=== PATIENT | female | born 1945 | race Caucasian/White ===

== ENCOUNTER 2019-08-17 22:28 | Emergency (ER) | payer MEDICARE ==
[~2019-08-17] VITALS: Ht 162.6 cm; Wt 83.9 kg
[~2019-08-17 22:28] MED LIST: ASPI81TA50 PO; NEBI5TAB2 PO; OLME40TA12 PO
[2019-08-17 23:57] LABS: BASO # 0.1 x10^3/uL (0.0-0.2); BASO % 1 % (0-3); EOS # 0.2 x10^3/uL (0.0-0.7); EOS % 3 % (0-3); HEMATOCRIT 38.1 % (36.0-47.0); HEMOGLOBIN 12.4 g/dL (12.0-15.5); LYMPH # 1.9 x10^3/uL (1.0-4.8); LYMPH % 23 % (24-48); MEAN CORPUSCULAR HEMOGLOBIN 29 pg (25-35); MEAN CORPUSCULAR HGB CONC 33 g/dL (31-37); MEAN CORPUSCULAR VOLUME 88 fL (79-100); MONO # 0.9 x10^3/uL (0.0-1.1); MONO % 11 % (0-9); NEUT # 5.2 x10^3uL (1.8-7.7); NEUT % 63 % (31-73); PLATELET COUNT 316 x10^3/uL (140-400); RED BLOOD COUNT 4.31 x10^6/uL (3.50-5.40); RED CELL DISTRIBUTION WIDTH 13.6 % (11.5-14.5); WHITE BLOOD COUNT 8.2 x10^3/uL (4.0-11.0)
[2019-08-18 00:08] LABS: CALCIUM 9.1 mg/dL (8.5-10.1); CREATININE 0.8 mg/dL (0.6-1.0); GFR 70.1; POTASSIUM 3.8 mmol/L (3.5-5.1)
--- NOTE | 2019-08-18 00:11 | PHYS DOC ---
Past History Past Medical History: Hypertension Additional Past Surgical Histo: cataract surgery Smoking: Non-smoker Alcohol Use: None Drug Use: None Adult General Chief Complaint Chief Complaint: MECHANICAL FALL HPI HPI 74-year-old female presents with report of right ankle pain and swelling as well as right groin pain after missing a step at her daughter's house just prior to arrival. Patient denies head trauma or neck pain. Reports unable to bear weight on right foot. Denies numbness or tingling. Patient does report use of aspirin daily. Denies other blood thinners. Denies chest pain. Review of Systems Review of Systems Constitutional: Denies fever or chills Eyes: Denies redness or eye pain HENT: Denies nasal congestion or sore throat Respiratory: Denies cough or shortness of breath Cardiovascular: Denies chest pain or palpitations GI: Denies abdominal pain, nausea, or vomiting : Denies dysuria or hematuria Musculoskeletal: Reports right ankle and hip pain Integument: Denies rash or skin lesions Neurologic: Denies headache, focal weakness or sensory changes Complete systems were reviewed and found to be within normal limits, except as documented in this note. Current Medications Current Medications Current Medications Medications (Trade) Dose Ordered Sig/Richard Start Time Stop Time Status Last Admin Dose Admin Fentanyl Citrate (Fentanyl 2ml Vial) 100 mcg STK-MED ONCE 08/17/19 23:56 08/17/19 23:56 DC Allergies Allergies Allergies Coded Allergies Type Severity Reaction Last Updated Verified ramipril Allergy Severe 08/17/19 Yes phenazopyridine Allergy Intermediate Nausea and Vomiting 08/18/19 Yes shrimp Allergy Intermediate facial numbness 07/29/15 Yes Physical Exam Physical Exam Constitutional: Well developed, well nourished, no acute distress, non-toxic appearance HENT: Normocephalic, atraumatic, oropharynx moist Eyes: PERRL, EOMI, conjunctiva normal, no discharge Neck: Normal range of motion, no midline tenderness, supple Cardiovascular: Heart rate normal, regular rhythm Lungs & Thorax: Bilateral breath sounds clear to auscultation, no wheezing Abdomen: Soft, no tenderness; pelvis stable and nontender Skin: Warm, dry, no erythema, no rash, swelling and ecchymosis noted to right ankle Back: No midline tenderness, no CVA tenderness Extremities: Right medial and lateral malleolus pain on palpation, right DP and PT +2, sensation intact, pain on palpation of femoral head, no limb shortening Neurologic: Alert and oriented X 3, normal motor function, normal sensory function, no focal deficits noted Psychologic: Affect normal, judgment normal Current Patient Data Vital Signs Vital Signs Date Time Temp Pulse Resp B/P (MAP) Pulse Ox O2 Delivery O2 Flow Rate FiO2 08/18/19 00:00 71 20 193/73 (113) 93 Room Air Lab Results Laboratory Tests Test 08/17/19 23:40 White Blood Count 8.2 x10^3/uL (4.0-11.0) Red Blood Count 4.31 x10^6/uL (3.50-5.40) Hemoglobin 12.4 g/dL (12.0-15.5) Hematocrit 38.1 % (36.0-47.0) Mean Corpuscular Volume 88 fL (79-100) Mean Corpuscular Hemoglobin 29 pg (25-35) Mean Corpuscular Hemoglobin Concent 33 g/dL (31-37) Red Cell Distribution Width 13.6 % (11.5-14.5) Platelet Count 316 x10^3/uL (140-400) Neutrophils (%) (Auto) 63 % (31-73) Lymphocytes (%) (Auto) 23 % (24-48) L Monocytes (%) (Auto) 11 % (0-9) H Eosinophils (%) (Auto) 3 % (0-3) Basophils (%) (Auto) 1 % (0-3) Neutrophils # (Auto) 5.2 x10^3uL (1.8-7.7) Lymphocytes # (Auto) 1.9 x10^3/uL (1.0-4.8) Monocytes # (Auto) 0.9 x10^3/uL (0.0-1.1) Eosinophils # (Auto) 0.2 x10^3/uL (0.0-0.7) Basophils # (Auto) 0.1 x10^3/uL (0.0-0.2) EKG EKG @ 2316 NSR at 77bpm, NO ST elevation, nonspecific t wave inversion aVL, Q wave in V2, QRS 110ms, QT/QTc 370/420ms Radiology/Procedures Radiology/Procedures PROCEDURE: ANKLE RIGHT 3V ANKLE RIGHT 3V History: Fall. Pain. Technique: 3 views right ankle. Comparison: None. Findings: Mildly displaced right distal fibular fracture with posterior displacement of the distal fracture fragment. Nondisplaced posterior malleolar fracture. Mildly displaced medial malleolus fracture with inferior displacement of the distal fracture fragment. Widening of the ankle mortise. Ankle soft tissue swelling. Ankle joint effusion. Plantar calcaneal spur. Dorsal calcaneal enthesophyte. Impression: 1. Acute trimalleolar fracture with widening of ankle mortise. Electronically signed by: Sergio Camacho DO (08/18/2019 12:52 AM) [id number] PROCEDURE: HIP RIGHT 2V WITH PELVIS HIP RIGHT 2V WITH PELVIS History: Pain. Fall. Technique: AP view the pelvis and 2 additional views of the right hip. Comparison: None. Findings: Normal alignment. No fracture. Lower lumbar spondylosis. Impression: 1. No acute osseous abnormality. 2. Lower lumbar spondylosis. Electronically signed by: Sergio Camacho DO (08/18/2019 2:05 AM) [id number] CXR AP (preliminary interpretation by ED physician): No acute process Course & Med Decision Making Course & Med Decision Making Pertinent Labs and Imaging studies reviewed. (See chart for details) Patient presents with mechanical trip and fall with pain to right hip and right ankle. Patient neurologically intact. Reports use of aspirin daily. No signs of head injury on physical exam. No midline cervical spine tenderness. X-ray of right hip without acute fracture or dislocation. X-ray of right ankle with signs of trimalleolar fracture. Limb neurovascularly intact. Splint applied. Preoperative labs, EKG, and chest x-ray obtained and posted to chart. Discussed case with Dr. Arreola (orthopedics at [facility]) who is in agreement with consultation and need for admission with plan for OR. Patient requiring transfer for admission to [facility] for further evaluation and treatment. Discussed with Dr. Luciano (hospitalist) who is in agreement with admission. Discussed findings and plan with patient and family, who acknowledge understanding and agreement. Dragon Disclaimer Dragon Disclaimer This electronic medical record was generated, in whole or in part, using a voice recognition dictation system. Splinting Splinting : Location: Right ankle Hand-Made Type: orthoglass Splint: stirrup Pre-Proc Neuro Vasc Exam: normal Post-Proc Neuro Vasc Exam: normal, unchanged from pre-exam Departure Departure: Impression: Primary Impression: Trimalleolar fracture of right ankle Disposition: 05 TRANSFER OTHER ([facility]) Admitting Physician: Eleni Luciano Condition: STABLE Referrals: JERICA OGDEN MD (PCP) Problem Qualifiers Primary Impression: Trimalleolar fracture of right ankle Encounter type: initial encounter Fracture type: closed Qualified Codes: S82.851A - Displaced trimalleolar fracture of right lower leg, initial encounter for closed fracture GRISELDA WICK DO Aug 18, 2019 00:11
[2019-08-18 00:34] LABS: ALBUMIN 3.7 g/dL (3.4-5.0); MAGNESIUM 1.9 mg/dL (1.8-2.4); TOTAL BILIRUBIN 0.1 mg/dL (0.2-1.0); TOTAL PROTEIN 7.4 g/dL (6.4-8.2)
[2019-08-18 00:37] LABS: PLT ESTIMATE ADEQUATE (ADEQUATE)
[2019-08-18 00:38] LABS: TOXIC GRANULATION SLIGHT; TOXIC VACUOLATION SLIGHT
--- NOTE | 2019-08-18 00:55 | RAD ---
ANKLE RIGHT 3V History: Fall. Pain. Technique: 3 views right ankle. Comparison: None. Findings: Mildly displaced right distal fibular fracture with posterior displacement of the distal fracture fragment. Nondisplaced posterior malleolar fracture. Mildly displaced medial malleolus fracture with inferior displacement of the distal fracture fragment. Widening of the ankle mortise. Ankle soft tissue swelling. Ankle joint effusion. Plantar calcaneal spur. Dorsal calcaneal enthesophyte. Impression: 1. Acute trimalleolar fracture with widening of ankle mortise. Electronically signed by: Sergio Camacho DO (08/18/2019 12:52 AM) [id number]
[2019-08-18] MEDS ORDERED: SERT25TA PO (01:01)
[2019-08-18] MEDS ORDERED: MELA5TAB20 PO (01:01)
[2019-08-18] MEDS ORDERED: MOME13HF4 IH (01:01)
[2019-08-18] MEDS ORDERED: KETO5DRO OS (01:01)
[2019-08-18] MEDS ORDERED: ALBU2.5V8 INH (01:01)
[2019-08-18] MEDS ORDERED: zicam TOP (01:01)
[2019-08-18] MEDS ORDERED: LOSA100T14 PO (01:01)
[2019-08-18] MEDS ORDERED: MOXI3DRO18 OP (01:01)
[2019-08-18] MEDS ORDERED: PRED5DRO20 OS (01:01)
[2019-08-18] MEDS ORDERED: CARV6.25 PO (01:01)
--- NOTE | 2019-08-18 02:08 | RAD ---
HIP RIGHT 2V WITH PELVIS History: Pain. Fall. Technique: AP view the pelvis and 2 additional views of the right hip. Comparison: None. Findings: Normal alignment. No fracture. Lower lumbar spondylosis. Impression: 1. No acute osseous abnormality. 2. Lower lumbar spondylosis. Electronically signed by: Sergio Camacho DO (08/18/2019 2:05 AM) [id number]
[2019-08-18] MEDS ORDERED: LABETALOL 100 MG/20 ML VIAL. IV ONE (02:37)
--- NOTE | 2019-08-18 02:42 | RAD ---
CHEST AP ONLY History: Preoperative pain. Comparison: None. Findings: Patchy central and bibasilar opacities. No pleural effusion. No pneumothorax. Normal heart size. Impression: 1. Patchy central and bibasilar opacities, likely atelectasis. Electronically signed by: Sergio Camacho DO (08/18/2019 2:39 AM) [id number]
[2019-08-18 02:45] VITALS: BP 205/91
[2019-08-18] MEDS ORDERED: LABETALOL 20 MG/4 ML DISP.SYRIN. IVP ONE (03:00)
[2019-08-18 03:03] LABS: BACTERIA,URINE FEW /HPF (0-FEW); BILIRUBIN,URINE NEG (NEG); CLARITY,URINE HAZY; COLOR,URINE YELLOW; GLUCOSE,URINE NEG (NEG); NITRITE,URINE NEG (NEG); RBC,URINE OCC /HPF (0-2); SQUAMOUS EPITHELIAL CELL,UR OCC /LPF; UROBILINOGEN,URINE 0.2 mg/dL (0.2 mg/dL); WBC,URINE OCC /HPF (0-4)
--- NOTE | 2019-08-18 12:35 | EKG ---
[address] [address] Test Date: 2019-08-17 Test Time: 23:16:32 Pat Name: NIECY MARTIN Department: Room: Gender: F Recreation Counselor: : 1945 Requested By: GRISELDA WICK Order Number: [id number] Reading MD: Measurements Intervals [place] Rate: 77 P: -21 AR: 144 QRS: -14 QRSD: 110 T: 72 QT: 370 QTc: 420 Interpretive Statements SINUS RHYTHM LEFTWARD AXIS QRS(T) CONTOUR ABNORMALITY CONSISTENT WITH ANTEROSEPTAL INFARCT AGE UNDETERMINED T ABNORMALITY IN HIGH LATERAL LEADS ABNORMAL ECG RI6.01 No previous ECG available for comparison
== END 2019-08-18 02:47 | disposition short-term general hospital (02) ==
LOC: ER 22:28
DX: S82.851A Displaced trimalleolar fracture of right lower leg, initial encounter for closed fracture (principal); R10.31 Right lower quadrant pain; Z88.8 Allergy status to other drugs, medicaments and biological substances; Z91.013 Allergy to seafood; W10.8XXA Fall (on) (from) other stairs and steps, initial encounter; Y93.89 Activity, other specified; Y92.89 Other specified places as the place of occurrence of the external cause; Y99.9 Unspecified external cause status
CPT/HCPCS: 29515; 36415; 71045; 73502; 73610; 80053; 81001; 82553; 83735; 84484; 85025; 85610; 85730; 87086; 93005; 96374; 96375; 99285; J3010; J3490

== ENCOUNTER → 2019-09-12 | Outpatient (CLI) | payer MEDICARE ==
[2019-08-18 02:45] VITALS: BP 205/91
[~2019-09-12] MED LIST changes: +ALBU2.5V8 INH; +CARV6.25 PO; +KETO5DRO OS; +LOSA100T14 PO; +MELA5TAB20 PO; +MOME13HF4 IH; +MOXI3DRO18 OP; +PRED5DRO20 OS; +SERT25TA PO; +zicam TOP
--- NOTE | 2019-09-12 11:04 | RAD ---
Right ankle 3 views: Reason for examination: Closed fracture with repair 3 weeks ago. Nonweightbearing. Plate and screws are present at the distal fibula with good alignment of the fracture site. Some minimal periosteal reaction is seen at the fracture. 2 threaded screws are also present at the medial malleolus with improved alignment. No new sites of fracture or dislocation are seen. Plantar spur is present on the calcaneus. Joint spaces are maintained. IMPRESSION: Postoperative changes at the distal tibia and fibula with good alignment. Electronically signed by: Bre Mary MD (09/12/2019 11:02 AM) [id number]
== END ==
LOC: DXRAD 10:40
PROVIDERS: ATTEND Physician Assistant
DX: S82.891D Other fracture of right lower leg, subsequent encounter for closed fracture with routine healing (principal); X58.XXXD Exposure to other specified factors, subsequent encounter
CPT/HCPCS: 73610

== ENCOUNTER → 2019-10-14 | Outpatient (CLI) | payer MEDICARE ==
--- NOTE | 2019-10-14 12:26 | RAD ---
PROCEDURE: ANKLE RIGHT 3V STUDY DATE: 10/14/2019 CLINICAL INDICATION / HISTORY: Status post right ankle surgery. TECHNIQUE: Right ankle 3 views. COMPARISON: Right ankle views of 08/17/2019 and 09/12/2019 FINDINGS: Screws through the medial malleolus and a lateral plate and screw construct fixation of the lateral malleolus remain present in good alignment. No new fracture. The fracture lines are less conspicuous in the interval, consistent with progression in healing. There is mild soft tissue swelling that is less conspicuous than on the immediate prior comparison examination. A skin staple over the medial malleolus has since been removed. No abnormal gas or unexpected radiopaque foreign body is evident.. IMPRESSION: Evidence of healing of the medial and lateral malleolus status post internal fixation as described. There is slight decrease in soft tissue swelling without complete resolution in the interval. Electronically signed by: Ana M Beasley MD (10/14/2019 12:23 PM) [id number]
== END | disposition home or self-care (01) ==
LOC: RAD 11:49
PROVIDERS: ATTEND Physician Assistant
DX: S82.891D Other fracture of right lower leg, subsequent encounter for closed fracture with routine healing (principal); M79.89 Other specified soft tissue disorders; Z98.890 Other specified postprocedural states; X58.XXXD Exposure to other specified factors, subsequent encounter
CPT/HCPCS: 73610

== ENCOUNTER → 2019-11-13 | Outpatient (CLI) | payer MEDICARE ==
--- NOTE | 2019-11-13 12:46 | RAD ---
Examination: ANKLE RIGHT 3V History: Reason: S/P SURGERY / Spl. Instructions: / History: Comparison/Correlation: 10/14/2019 right ankle 3 view x-ray exam Findings: Total 3 images of the right ankle were obtained. Plate with associated screws is present. Additional screw is also present involving the proximal lateral malleolus separate from the plate. There are 2 screws associated with the medial malleolus. Ankle joint mortise is unremarkable. Moderate-sized calcaneal spur is present. Osteopenia noted. Callus formation at the lateral malleolar fracture is evident. Fracture line is no longer definitely seen. Impression: Interval progression of healing. No new processes. No loosening. Electronically signed by: Jonathan Bacon MD (11/13/2019 12:43 PM) [id number]
== END ==
LOC: DXRAD 11:39
PROVIDERS: ATTEND Physician Assistant
DX: Z98.890 Other specified postprocedural states (principal)
CPT/HCPCS: 73610

== ENCOUNTER 2020-01-02 19:07 | Emergency (ER) | payer MEDICARE ==
[~2020-01-02] VITALS: Ht 162.6 cm; Wt 78.0 kg
[2020-01-02 19:07] VITALS: BP 205/91
[2020-01-02] MEDS ORDERED: IV NORMAL SALINE 1,000ML 1,000 ML IV ONE (19:30)
[2020-01-02 19:52] LABS: CALCIUM 9.1 mg/dL (8.5-10.1); CREATININE 0.9 mg/dL (0.6-1.0); GFR 61.2; POTASSIUM 3.8 mmol/L (3.5-5.1)
[2020-01-02 19:53] LABS: BASO % 0 % (0-3); EOS % 0 % (0-3); LYMPH # 1.1 x10^3/uL (1.0-4.8); LYMPH % 30 % (24-48); MEAN CORPUSCULAR HEMOGLOBIN 28 pg (25-35); MEAN CORPUSCULAR HGB CONC 33 g/dL (31-37); MEAN CORPUSCULAR VOLUME 86 fL (79-100); MONO # 0.5 x10^3/uL (0.0-1.1); MONO % 12 % (0-9); NEUT # 2.2 x10^3uL (1.8-7.7); NEUT % 58 % (31-73); PLATELET COUNT 254 x10^3/uL (140-400); RED BLOOD COUNT 4.28 x10^6/uL (3.50-5.40); RED CELL DISTRIBUTION WIDTH 14.2 % (11.5-14.5); WHITE BLOOD COUNT 3.8 x10^3/uL (4.0-11.0)
[2020-01-02 20:09] LABS: ALBUMIN 3.4 g/dL (3.4-5.0); ALBUMIN/GLOBULIN RATIO 0.7 (1.0-1.7); MAGNESIUM 1.9 mg/dL (1.8-2.4); TOTAL BILIRUBIN 0.3 mg/dL (0.2-1.0); TOTAL PROTEIN 8.1 g/dL (6.4-8.2)
--- NOTE | 2020-01-02 20:16 | PHYS DOC ---
Past History Past Medical History: Hypertension Additional Past Surgical Histo: cataract surgery Smoking: Non-smoker Alcohol Use: None Drug Use: None General Adult EDM: Chief Complaint: SHORTNESS OF BREATH HPI: HPI: 74-year-old female presents with report of shortness of air and low oxygenation. Patient reports family members and daughter and grandson have tested positive for COVID-19. Patient reports she was tested at the [facility] this morning and results were pending. Review of Systems: Review of Systems: Constitutional: Denies fever or chills; reports malaise Eyes: Denies redness or eye pain HENT: Denies nasal congestion or sore throat Respiratory: Reports cough and shortness of breath Cardiovascular: Denies chest pain or palpitations GI: Denies abdominal pain, nausea, or vomiting : Denies dysuria or hematuria Musculoskeletal: Denies back pain or joint pain Integument: Denies rash or skin lesions Neurologic: Denies headache, focal weakness or sensory changes Complete systems were reviewed and found to be within normal limits, except as documented in this note. Current Medications: Current Meds: Current Medications Medications (Trade) Dose Ordered Sig/Richard Start Time Stop Time Status Last Admin Dose Admin Sodium Chloride 1,000 ml @ 1,000 mls/hr 1X ONCE 01/02/20 19:30 01/02/20 20:29 01/02/20 19:30 1,000 MLS/HR Allergies: Allergies: Allergies Coded Allergies Type Severity Reaction Last Updated Verified ramipril Allergy Severe 08/17/19 Yes phenazopyridine Allergy Intermediate Nausea and Vomiting 08/18/19 Yes shrimp Allergy Intermediate facial numbness 07/29/15 Yes Physical Exam: PE: Constitutional: Well developed, well nourished, no acute distress HENT: Normocephalic, atraumatic, Eyes: Conjunctiva normal, no discharge Neck: Normal range of motion, supple Lungs & Thorax: No respiratory distress, patient able to yell and complained that she has waited too long. Neurologic: Alert , speech normal, ambulates without difficulty Psychologic: Affect agitated Current Patient Data: Labs: Laboratory Tests Test 01/02/20 19:15 White Blood Count 3.8 x10^3/uL (4.0-11.0) L Red Blood Count 4.28 x10^6/uL (3.50-5.40) Hemoglobin 12.0 g/dL (12.0-15.5) Hematocrit 37.0 % (36.0-47.0) Mean Corpuscular Volume 86 fL (79-100) Mean Corpuscular Hemoglobin 28 pg (25-35) Mean Corpuscular Hemoglobin Concent 33 g/dL (31-37) Red Cell Distribution Width 14.2 % (11.5-14.5) Platelet Count 254 x10^3/uL (140-400) Neutrophils (%) (Auto) 58 % (31-73) Lymphocytes (%) (Auto) 30 % (24-48) Monocytes (%) (Auto) 12 % (0-9) H Eosinophils (%) (Auto) 0 % (0-3) Basophils (%) (Auto) 0 % (0-3) Neutrophils # (Auto) 2.2 x10^3uL (1.8-7.7) Lymphocytes # (Auto) 1.1 x10^3/uL (1.0-4.8) Monocytes # (Auto) 0.5 x10^3/uL (0.0-1.1) Eosinophils # (Auto) 0.0 x10^3/uL (0.0-0.7) Basophils # (Auto) 0.0 x10^3/uL (0.0-0.2) Prothrombin Time < 9.3 SEC (9.4-11.4) L Prothrombin Time INR 0.9 (0.9-1.1) Activated Partial Thromboplast Time 31 SEC (23-33) D-Dimer (Ирина) 3.10 mg/L (0.00-0.50) H Sodium Level 136 mmol/L (136-145) Potassium Level 3.8 mmol/L (3.5-5.1) Chloride Level 99 mmol/L (98-107) Carbon Dioxide Level 31 mmol/L (21-32) Anion Gap 6 (6-14) Blood Urea Nitrogen 17 mg/dL (7-20) Creatinine 0.9 mg/dL (0.6-1.0) Estimated GFR (Cockcroft-Gault) 61.2 BUN/Creatinine Ratio 19 (6-20) Glucose Level 110 mg/dL (70-99) H Lactic Acid Level 1.2 mmol/L (0.4-2.0) Calcium Level 9.1 mg/dL (8.5-10.1) Magnesium Level Pending Total Bilirubin Pending Aspartate Amino Transferase (AST) Pending Alanine Aminotransferase (ALT) Pending Alkaline Phosphatase Pending Lactate Dehydrogenase Pending Creatine Kinase Pending Creatine Kinase MB (Mass) Pending Creatine Kinase MB Relative Index Pending Troponin I Quantitative < 0.017 ng/mL (0-0.055) Total Protein Pending Albumin Pending Albumin/Globulin Ratio Pending EKG: EKG: @1924 NSR at 75bpm, NO ST elevation, QRS 112ms, QT/QTc 358/402ms, occasional PVC Radiology/Procedures: Radiology/Procedures: PROCEDURE: CT ANGIOGRAPHY CHEST INDICATION: Reason: Hypoxia, elevated d-dimer, eval for PE, COVID PUI / Spl. Instructions: Difficulty lying down / History: COMPARISON: August 21, 2019 TECHNIQUE: Axial CT images obtained through the chest. Intravenous contrast utilized. Angiogram 3D images processed per protocol. One or more of the following individualized dose reduction techniques were utilized for this examination: 1. Automated exposure control; 2. Adjustment of the mA and/or kV according to patient size; 3. Use of iterative reconstruction technique. FINDINGS: Moderate cystic changes throughout the bilateral lungs which can be seen with chronic lung disease such as emphysema. There is superimposed patchy opacities in the right greater than left lung affecting multiple lobes. No evidence of pneumothorax. Cystic lesion at the partially visualized liver measuring approximately 2 cm. Gallbladder partially seen and appears distended. Exophytic low-density left renal lesion partially seen measuring approximately 15 mm. Coronary artery calcific atherosclerosis. Lymphadenopathy with the mediastinum and hilum. There are some regions of low density within the thyroid which is partially seen. Underlying nodules not excluded. Within the subcarinal region where the enlarged lymph nodes measures 15 mm short axis and was previously 10 mm short axis. An additional nodule in the precarinal region measures up to 11 mm short access which is slightly increased from prior as well. Calcific atherosclerosis throughout the thoracic aorta. No embolus in the central pulmonary arteries with some of the peripheral vessels limited in evaluation secondary to motion. IMPRESSION: No central pulmonary embolus with peripheral vessels obscured by motion. Patchy opacities within the bilateral lungs. This could be infectious in nature. Cystic changes throughout the lungs which can be seen with chronic lung disease such as emphysema. Lymphadenopathy of the mediastinum and hilum. Could be reactive or neoplastic in nature and follow-up could be obtained to ensure that this decreases to exclude neoplasm. Partial visualization of exophytic left renal lesion which appears increased in size when compared to 2016 and not well evaluated on this exam. If further clarification is desired nonemergent ultrasound could further assess. There is also a right lobe liver lesion which appears increased from prior which could be assessed with focused ultrasound as well to assess whether this is cystic or solid. Electronically signed by: Sergio Vance MD (01/02/2020 10:27 PM) [id number] Course & Med Decision Making: Course & Med Decision Making Pertinent Labs and Imaging studies reviewed. (See chart for details) Patient with HPI presents with concern for exposure to COVID. Patient with shortness of air and hypoxia upon arrival. Hypoxia treated with supplemental O2 with interval improvement. EKG stable. Labs obtained and posted to chart. WBC and lactic acid within normal limits. Initial troponin within normal limits. D-dimer elevated. CTA chest obtained for rule out PE. No PE noted. Bilateral opacities concerning for COVID pneumonia appreciated. Patient was immediately placed in COVID precautions and negative pressure room. Personal protective equipment utilized. Nursing staff relayed patient's information and testing was appropriately ordered. Telemetry monitoring utilized for patient's vital signs. Attempted to minimize waste of PPE and therefore had planned to present to the room once results were completed. Plan was to admit patient to the hospital given age and hypoxia. Patient subsequently became irritated that she had waited so long and decided that she wanted to leave AGAINST MEDICAL ADVICE. Patient was seen by myself in hallway at which point patient was yelling and saying that Dr. Ogden (PCP) would hear about this. Patient did appear to not have any respiratory distress at this time. Patient advised she does not have supplemental O2 at home and there is concerns of leaving AGAINST MEDICAL ADVICE including permanent disability and/or . AMA form was signed. Patient advised to minimize contact due to concern of spread of COVID-19. Discharge paperwork including AMA and COVID instructions provided. COVID-19 CRITERIA: The patient was evaluated during the global COVID-19 pandemic, and that diagnosis was suspected/considered upon their initial presentation. Their evaluation, treatment and testing was consistent with current guidelines for patients who present with complaints or symptoms that may be related to COVID-19. Dragon Disclaimer: Dragon Disclaimer: This electronic medical record was generated, in whole or in part, using a voice recognition dictation system. Departure Departure: Impression: Primary Impression: Suspected 2019 novel coronavirus infection Additional Impression: Hypoxia Disposition: 07 AGAINST MEDICAL ADVICE Condition: GUARDED Referrals: JERICA OGDEN MD (PCP) Patient Instructions: Discharge Against Medical Advice Additional Instructions: You have been tested for or diagnosed with COVID-19. It is an infection caused by a new type of coronavirus. COVID-19 will cause cold-like or mild flu symptoms in most. It can cause more severe symptoms like problems breathing in some. There is no treatment for COVID-19. The body will clear the infection over time. Self-care will help to ease discomfort. Steps to Take: Self-Care Rest as needed. Healthy habits may help you feel better. Steps include: Choose healthy foods including fruits and vegetables. Drink water throughout the day. Get plenty of sleep each night. If you smoke, try to quit. It may ease breathing. Avoid alcohol. Keep Others Healthy The virus can spread to others. Droplets are released every time you sneeze or cough. The droplets can get into the mouth, nose, or eyes of people near you and lead to infection. To lower the chances of spreading COVID-19 to others: Stay at home until your doctor has said it is safe to leave. If you tested positive this will mean staying isolated until both of the following are true: At least 7 days have passed since the start of illness. You are free of fever for at least 72 hours without the use of medicine. During this time: - Avoid public areas, events, or transportation. Do not return to work or school until your doctor has said it is safe to do so. - Call ahead if you need to go to a medical center. Let them know you may have COVID-19. It will help them guide you where to go. They may also ask you to wear a facemask w hen you come to the office. - If you call for emergency medical services, let them know you may have COVID- 19. While at home: - Try to avoid close contact with others. Stay about 6 feet away. - If possible, spend most of your time in a separate room from others. - Use a face mask if you will be in close contact with others such as sharing a room or vehicle. - Have someone wipe down common surfaces in the home. Use household staff [facility]ist [facility] every day on areas like doorknobs, counters, or sinks. - Cough or sneeze into a tissue. Throw the tissue away right after use. If a tissue is not available, cough or sneeze into your elbow. - Wash your hands often. Wash them after sneezing or coughing. Use soap and water and wash for at least 20 seconds. Alcohol based hand graffiti cleaner can be used if soap and water is not available. - Do not prepare food for others. Avoid sharing personal items like forks, spoons, or toothbrushes. - Avoid close contact with pets while you are sick. There is no evidence of the virus passing to pets. This is a safety step until more is known about this virus. Isolation can be frustrating. Social interaction can help. Keep in touch with friends and family through phone and tech options. You can still interact with others in your home, just keep a safe distance of about 6 feet. Follow-up: Your doctors office will check in with you to see if there are any changes in your health. You may be asked to keep track of symptoms to share with them. They will also let you know when you are clear to be in public again. Problems to Look Out For: Contact your doctor if your recovery is not going as you expect. Get emergency care if you have problems such as: - Trouble breathing - Nonstop chest pain or pressure - Changes in awareness, confusion, or problems waking - Lips or face have bluish color - Worsening of symptoms If you think you have an emergency, call for emergency medical services right away. As taken from [facility] Justification of Admission: Justification of Admission: Justification of Admission Dx: N/A COVID-19 Assessment COVID-19 Patient Risks: Age 65 or older: Yes Sign of co-morbidity: No Exp to person + for COVID: Yes Lower respiratory symptoms: Yes PPE Use: Full PPE with N95 mask or PAPR: Yes Critical Care Time Critical care time was 30 minutes which includes time at bedside, spent in discussion of patient's care with specialists and/or family members, with interpretation of laboratory and/or radiological studies and is exclusive of procedures. GRISELDA WICK DO Jan 02, 2020 20:16
[2020-01-02] MEDS ORDERED: IOHEXOL 350 MG/ML 100 ML VIAL. IV ONE (20:45)
--- NOTE | 2020-01-02 22:30 | RAD ---
INDICATION: Reason: Hypoxia, elevated d-dimer, eval for PE, COVID PUI / Spl. Instructions: Difficulty lying down / History: COMPARISON: August 21, 2019 TECHNIQUE: Axial CT images obtained through the chest. Intravenous contrast utilized. Angiogram 3D images processed per protocol. One or more of the following individualized dose reduction techniques were utilized for this examination: 1. Automated exposure control; 2. Adjustment of the mA and/or kV according to patient size; 3. Use of iterative reconstruction technique. FINDINGS: Moderate cystic changes throughout the bilateral lungs which can be seen with chronic lung disease such as emphysema. There is superimposed patchy opacities in the right greater than left lung affecting multiple lobes. No evidence of pneumothorax. Cystic lesion at the partially visualized liver measuring approximately 2 cm. Gallbladder partially seen and appears distended. Exophytic low-density left renal lesion partially seen measuring approximately 15 mm. Coronary artery calcific atherosclerosis. Lymphadenopathy with the mediastinum and hilum. There are some regions of low density within the thyroid which is partially seen. Underlying nodules not excluded. Within the subcarinal region where the enlarged lymph nodes measures 15 mm short axis and was previously 10 mm short axis. An additional nodule in the precarinal region measures up to 11 mm short access which is slightly increased from prior as well. Calcific atherosclerosis throughout the thoracic aorta. No embolus in the central pulmonary arteries with some of the peripheral vessels limited in evaluation secondary to motion. IMPRESSION: No central pulmonary embolus with peripheral vessels obscured by motion. Patchy opacities within the bilateral lungs. This could be infectious in nature. Cystic changes throughout the lungs which can be seen with chronic lung disease such as emphysema. Lymphadenopathy of the mediastinum and hilum. Could be reactive or neoplastic in nature and follow-up could be obtained to ensure that this decreases to exclude neoplasm. Partial visualization of exophytic left renal lesion which appears increased in size when compared to 2016 and not well evaluated on this exam. If further clarification is desired nonemergent ultrasound could further assess. There is also a right lobe liver lesion which appears increased from prior which could be assessed with focused ultrasound as well to assess whether this is cystic or solid. Electronically signed by: Sergio Vance MD (01/02/2020 10:27 PM) [id number]
--- NOTE | 2020-01-03 06:21 | EKG ---
[address] [address] Test Date: 2020-01-02 Test Time: 19:24:36 Pat Name: NIECY MARTIN Department: Room: Gender: F Card Placer: : 1945 Requested By: GRISELDA WICK Order Number: [id number] Reading MD: Measurements Intervals [place] Rate: 75 P: 39 NC: 166 QRS: -28 QRSD: 112 T: 37 QT: 358 QTc: 402 Interpretive Statements SINUS RHYTHM LEFTWARD AXIS LVH WITH REPOLARIZATION ABNORMALITY QRS(T) CONTOUR ABNORMALITY CONSIDER ANTEROSEPTAL MYOCARDIAL DAMAGE ABNORMAL ECG RI6.02 No previous ECG available for comparison
--- NOTE | 2020-01-06 09:55 | NUR ---
IP: attempt to notify patient of COVID-19 result. Left message to call back.
--- NOTE | 2020-01-06 14:14 | NUR ---
IP: discussed COVID-19 results with patient, stated she had already been informed.
== END 2020-01-02 22:47 | disposition left against medical advice (07) ==
LOC: ER 19:07
DX: R05 Cough (principal); R06.02 Shortness of breath; R09.02 Hypoxemia; Z20.828 Contact with and (suspected) exposure to other viral communicable diseases
CPT/HCPCS: 36415; 71275; 80053; 82553; 82728; 83605; 83615; 83735; 84484; 85025; 85379; 85610; 85730; 87040; 93005; 99285; C9803; J7030; Q9967; U0003; 99281; 99291-25

== ENCOUNTER → 2021-07-23 | Outpatient (CLI) | payer MEDICARE ==
--- NOTE | 2021-07-23 11:20 | RAD ---
Exam Date: 07/23/2021 10:[address] ABDOMEN+PELVIS WO Indication: Reason: LLQ ABDOMEN PAIN X 1 WEEK / Spl. Instructions: NO HISTORY BESIDES C SECTION / His tory: . TECHNIQUE: CT examination of the abdomen and pelvis was performed without oral or intravenous contra st. One or more of the following dose reduction techniques were utilized: *Automated exposure control (AEC) *Adjustment of mA and/or kV according to patient size *Use of iterative reconstruction technique *CT scan done according to ALARA, or ALARA/IMAGE GENTLY COMPARISON: CT from July 29, 2015 FINDINGS: The visualized lung bases demonstrate mild emphysematous changes. There is a liver cyst, increased in size compared to the prior exam. There is a left renal cyst, inc reased in size compared to the prior exam. The liver, gallbladder, spleen, pancreas, and adrenal glands are otherwise normal. The kidneys are otherwise normal bilaterally. No hydronephrosis or hydroureter is seen. No urinary tract calculi are seen. Urinary bladder is normal in appearance. Diverticulosis coli is seen without bowel obstruction or inflammation. No evidence for acute appendi citis. Moderate atherosclerotic calcifications are seen. No lymphadenopathy or ascites is seen. Degenerative changes are seen in the spine. IMPRESSION:. Diverticulosis coli noted without bowel inflammation or obstruction. Left renal cyst. Otherwise normal appearance of the kidneys and bladder. No hydronephrosis or hydro ureter. No urinary tract calculi. Electronically signed by: Gagandeep Reyez MD (07/23/2021 11:17 AM) [id number]
== END ==
LOC: CT 10:07
PROVIDERS: ATTEND Family Medicine
DX: K57.30 Diverticulosis of large intestine without perforation or abscess without bleeding (principal); N28.1 Cyst of kidney, acquired; K76.89 Other specified diseases of liver; J43.9 Emphysema, unspecified
CPT/HCPCS: 74176